=== PATIENT | female | born 1960 | race Caucasian/White ===

== ENCOUNTER 2017-07-31 07:02 | Emergency (ER) | payer BC ==
[~2017-07-31] VITALS: Ht 165.1 cm; Wt 62.0 kg
[2017-07-31 07:04] VITALS: BP 156/83; PULSE 54; RESP 16; TEMP 97.8; O2SAT 100
[2017-07-31] MEDS ORDERED: [UNRECOGNIZED DRUG - CODE] TOPICAL (07:25)
[2017-07-31] MEDS ORDERED: ESTR1.25 PO (07:25)
[2017-07-31] MEDS ORDERED: PERC5TAB12 PO (07:28)
--- NOTE | 2017-07-31 07:28 | PD ---
HPI Chief Complaint: Fall Time Seen by Provider: 07:10 Travel History International Travel<30 days: No Contact w/Intl Traveler<30days: No Traveled to known affect area: No History of Present Illness HPI 57 yo F c/o R chest wall pain after mechanical fall onto corner of footboard of bed. + Pleuritic component. + Paresthesias R hand. Minimal swelling around R first finger. No LOC or head trauma. Pain worse with supine position. + Shortness of breath 2/2 pain with inspiration. PFSH Past Medical History ?: Not LMP: MENOPUASAL Social History Tobacco Use: No Allergies-Medications (Allergen,Severity, Reaction): Coded Allergies: No Known Allergies (Unverified , 07/31/17) Reported Meds & Prescriptions Reported Meds & Active Scripts Active Zofran Odt (Ondansetron Odt) 4 Mg Tab 4 Mg SL Q8HR PRN Tylenol-Codeine #3 (Acetaminophen-Codeine) 300-30 mg Tab 1-2 Tab PO Q6H PRN Percocet (Oxycodone-Acetaminophen) 5-325 mg Tab 1-2 Tab PO Q6H PRN Reported Premarin (Estrogens Conjugated) 1.25 Mg Tab 1.25 Mg PO DAILY Estradiol Transdermal Patch (Estradiol) 0.05 Mg/24 Hour Patch.tdwk 1 Patch TOPICAL DAILY Review of Systems General / Constitutional: No: Fever Cardiovascular: Positive: Chest Pain or Discomfort Respiratory: Positive: Shortness of Breath, No: Wheezing, Sneezing Physical Exam Narrative GENERAL: 57yo F, NAD, WNWD SKIN: Warm and dry. HEAD: Normocephalic. EYES: No scleral icterus. No injection or drainage. NECK: Supple, trachea midline. No JVD or lymphadenopathy. CARDIOVASCULAR: Regular rate and rhythm without murmurs, gallops, or rubs. R anterior chest wall: no gross deformity, trace TTP midclavicular line at about middle portion of sternum. No crepitus. RESPIRATORY: Breath sounds equal bilaterally. No accessory muscle use. GASTROINTESTINAL: Abdomen soft, non-tender, nondistended. MUSCULOSKELETAL: No cyanosis. Normal sensation median/radial/ulnar distributions. Normal handgrip bilaterally. Trace swelling about the prox phalanx index finger on R side. BACK: Nontender without obvious deformity. No CVA tenderness. Data Data Last Documented VS Vital Signs Date Time Temp Pulse Resp B/P (MAP) Pulse Ox O2 Delivery O2 Flow Rate FiO2 07/31/17 07:04 97.8 54 16 156/83 (107) 100 VS reviewed Orders Orders Oxycodone-Acetamin 5-325 Mg (Percocet (07/31/17 07:30) Resp Incentive Spirometry (07/31/17 ) Chest, Pa & Lat (07/31/17 ) Ondansetron Odt (Zofran Odt) (07/31/17 07:45) Acetamin-Codeine 300-30 Mg (Tylenol-Code (07/31/17 07:45) MDM Medical Decision Making Medical Screen Exam Complete: Yes Emergency Medical Condition: Yes Differential Diagnosis rib fracture, pulmonary contusion, rib contusion, ptx Narrative Course Last 24 hours Impressions Chest X-Ray 07/31/17 0000 Signed Impressions: Service Date/Time: July 07:23 - CONCLUSION: No acute cardiopulmonary abnormality is identified. Tarun Zuleta MD T3 Incentive spirometry Diagnosis Primary Impression: Contusion of rib on right side Qualified Codes: S20.211A - Contusion of right front wall of thorax, initial encounter Additional Impression: Right hand paresthesia Additional Instructions: You have a choice when it comes to health care, and we are glad that you chose [facility]. Hopefully, we have met your expectations on today's visit. You are welcome to return to [facility] at any time, as we are committed to meeting the health care needs of our community. Med/Other Pt SpecificInfo: Prescription(s) given Scripts Ondansetron Odt (Zofran Odt) 4 Mg Tab 4 MG SL Q8HR Y for Nausea/Vomiting, #10 TAB 0 Refills Prov: Iain Garcia MD 07/31/17 Acetaminophen-Codeine (Tylenol-Codeine #3) 300-30 mg Tab 1-2 TAB PO Q6H Y for PAIN SCALE 6 TO 10, #30 TAB 0 Refills Prov: Iain Garcia MD 07/31/17 Disposition: 01 DISCHARGE HOME Condition: Stable Iain Garcia MD Jul 31, 2017 07:28
[2017-07-31] MEDS ORDERED: oxyCODONE/ACETAMINOPHEN 5 MG/325 MG TAB PO ONE (07:30)
--- NOTE | 2017-07-31 07:38 | RADRPT ---
EXAM DATE/TIME: 07/31/2017 07:23 [place] COMPARISON: No previous studies available for comparison. INDICATIONS : Right upper/anterior chest pain post fall onto furniture this morning. MEDICAL HISTORY : None. SURGICAL HISTORY : None. ENCOUNTER: Initial ACUITY: 2 days PAIN SCORE: 4/10 LOCATION: Right upper chest FINDINGS: PA and lateral views of the chest demonstrate a normal-sized cardiac silhouette. There is no effusion , consolidation, or pneumothorax. The bones and soft tissues demonstrate no acute abnormality. There is mild rightward convex curvature of the thoracic spine. CONCLUSION: No acute cardiopulmonary abnormality is identified. Tarun Zuleta MD on July 31, 2017 at 7:36 Board Certified Radiologist. This report was verified electronically.
[2017-07-31] MEDS ORDERED: ACETAMINOPHEN/CODEINE 300 MG/30 MG TAB PO ONE (07:45)
[2017-07-31] MEDS ORDERED: ONDANSETRON ODT 4 MG TAB PO ONE (07:45)
[2017-07-31] MEDS ORDERED: TYLETAB34 PO (07:52)
[2017-07-31] MEDS ORDERED: ZOFR4TAB3 SL (07:52)
== END 2017-07-31 08:19 | disposition home or self-care (01) ==
LOC: PHED 07:02
DX: S20.211A Contusion of right front wall of thorax, initial encounter (principal); R20.8 Other disturbances of skin sensation; R06.02 Shortness of breath; W01.190A Fall on same level from slipping, tripping and stumbling with subsequent striking against furniture, initial encounter; Y93.01 Activity, walking, marching and hiking; Y92.003 Bedroom of unspecified non-institutional (private) residence as the place of occurrence of the external cause
CPT/HCPCS: 71020; 94150; 99284